=== PATIENT | female | born 1970 | race Caucasian/White ===

== ENCOUNTER 2023-03-10 22:21 | Emergency (ER) | payer SELFPAY ==
[~2023-03-10] VITALS: Ht 152.4 cm; Wt 54.9 kg
[2023-03-10 22:34] VITALS: BP_SYST 162; PULSE 80; RESP 18; TEMP 97.2; O2SAT 95
[2023-03-11] MEDS ORDERED: CEPH-548 PO (00:35)
[2023-03-11] MEDS ORDERED: cephALEXin 500 MG CAPSULE PO ONE (00:45)
[2023-03-11 00:47] VITALS: BP_SYST 155; PULSE 77; RESP 18; TEMP 97.5; O2SAT 95
== END 2023-03-11 00:47 | disposition home or self-care (01) ==
LOC: SED 22:21
DX: S50.361A Insect bite (nonvenomous) of right elbow, initial encounter (principal); L03.113 Cellulitis of right upper limb; I10 Essential (primary) hypertension; F17.200 Nicotine dependence, unspecified, uncomplicated; Z79.899 Other long term (current) drug therapy; W57.XXXA Bitten or stung by nonvenomous insect and other nonvenomous arthropods, initial encounter; Y93.89 Activity, other specified; Y92.89 Other specified places as the place of occurrence of the external cause; Y99.8 Other external cause status
CPT/HCPCS: 99283